=== PATIENT | male | born 1960 | race Caucasian/White ===

== ENCOUNTER 2017-10-15 21:34 | Inpatient (IN) | payer SELFPAY ==
[~2017-10-15] VITALS: Ht 180.3 cm; Wt 109.5 kg
[2017-10-15 21:34] VITALS: O2SAT 88
[2017-10-15] MEDS ORDERED: MANNITOL INJ 50 ML ONE (21:38)
[2017-10-15] MEDS ORDERED: MANNITOL INJ 100 ML ONE (21:38)
[2017-10-15 21:55] VITALS: O2SAT 90
[2017-10-15 22:04] LABS: AUTOMATED NEUTROPHIL # 10.9 TH/MM3 (1.8-7.7); BASOPHIL # 0.1 TH/MM3 (0-0.2); BASOPHIL % 0.5 % (0.0-2.0); EOSINOPHIL # 0.1 TH/MM3 (0-0.4); EOSINOPHIL % 0.8 % (0.0-4.0); HEMATOCRIT 35.3 % (39.0-51.0); LYMPHOCYTE # 2.7 TH/MM3 (1.0-4.8); MEAN CELL VOLUME 93.7 FL (80.0-100.0); MEAN CORPUSCULAR HEMOGLOBIN 30.6 PG (27.0-34.0); MEAN CORPUSCULAR HGB CONC 32.6 % (32.0-36.0); MONO % 2.8 % (0.0-8.0); NEUT % 76.9 % (16.0-70.0); PLATELET COUNT 193 TH/MM3 (150-450); RED BLOOD COUNT 3.77 MIL/MM3 (4.50-5.90); RED CELL DISTRIBUTION WIDTH 12.7 % (11.6-17.2); WHITE BLOOD COUNT 14.2 TH/MM3 (4.0-11.0)
[2017-10-15 22:06] LABS: I-STAT POTASSIUM 2.9 MMOL/L (3.5-4.9)
[2017-10-15] MEDS ORDERED: SODIUM CHLOR 0.9% 1000 ML INJ 1,000 ML IV SCH (22:06)
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
[2017-10-15] MEDS ORDERED: IOHEXOL 350 MG/ML 10 ML VIAL (for RAD DIAG) IVCONTRAST ONE (22:11)
[2017-10-15 22:15] VITALS: BP 95/50; PULSE 72; RESP 27; TEMP 92.7; O2SAT 75
[2017-10-15] MEDS ORDERED: PROPOFOL 1000 MG/100 ML INJ 100 ML IV PRN (22:15)
[2017-10-15] MEDS ORDERED: SODIUM CHLORIDE 0.9% FLUSH 10 ML FLUSH IV FLUSH PRN (22:15)
[2017-10-15] MEDS ORDERED: ONDANSETRON HCL 4 MG/2 ML VIAL IV PUSH PRN (22:15)
[2017-10-15] MEDS ORDERED: Post-op Orders (for Pharmacy) XX ONE (22:15)
[2017-10-15] MEDS ORDERED: NALOXONE HCL 0.4 MG/ML AMP IV PUSH PRN (22:15)
[2017-10-15 22:22] LABS: APTT (PATIENT) 23.4 SEC (24.3-30.1); INTERNATIONAL NORMALIZED RATIO 1.2 RATIO; PROTHROMBIN TIME - PATIENT 12.1 SEC (9.8-11.6)
[2017-10-15 22:23] LABS: HEMO FLAGS AUTO DIFF
[2017-10-15] MEDS ORDERED: NOREPINEPHRINE-DEXTROSE DRIP 250 ML IV ONE (22:24)
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
[2017-10-15] MEDS ORDERED: NOREPINEPHRINE 4 MG/4 ML AMP ONE (22:33)
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
[2017-10-15 22:35] VITALS: O2SAT 77
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
[2017-10-15] MEDS ORDERED: MANNITOL INJ 200 ML ONE (22:41)
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
[2017-10-15] MEDS ORDERED: POTASSIUM CHLOR 20 MEQ PREMIX 100 ML IV PRN ×2 (22:45)
[2017-10-15] MEDS ORDERED: POTASSIUM PHOSPHATE MONOBASIC 500 MG TAB PO PRN (22:45)
[2017-10-15] MEDS ORDERED: POTASSIUM PHOSPHATE INJ 30 MMOL in SODIUM CHLOR 0.9% 250 ML INJ 250 ML IV PRN (22:45)
[2017-10-15] MEDS ORDERED: POTASSIUM CHLOR 40 MEQ PREMIX 100 ML IV PRN ×2 (22:45)
[2017-10-15] MEDS ORDERED: POTASSIUM PHOSPHATE MONOBASIC 500 MG TAB PO/TUBE PRN (22:45)
[2017-10-15] MEDS ORDERED: MAGNESIUM SULFATE INJ 4 GM in SODIUM CHLORIDE 0.9% INJ 92 ML IV PRN (22:45)
[2017-10-15] MEDS ORDERED: POTASSIUM CHLORIDE 25 MEQ EFFERVESCENT TAB PO PRN (22:45)
[2017-10-15] MEDS ORDERED: SODIUM PHOSPHATE INJ 30 MMOL in SODIUM CHLOR 0.9% 250 ML INJ 240 ML IV PRN (22:45)
[2017-10-15] MEDS ORDERED: MAGNESIUM SULFATE INJ 2 GM in SODIUM CHLORIDE 0.9% INJ 96 ML IV PRN (22:45)
[2017-10-15] MEDS ORDERED: MAGNESIUM OXIDE 400 MG TAB PO PRN (22:45)
[2017-10-15 22:48] LABS: BLOOD GAS BASE EXCESS -12.7 mmol/L (-2-2); BLOOD GAS CARBOXYHEMOGLOBIN 0.6 % (0-4); BLOOD GAS HCO3 16 mmol/L (22-26); BLOOD GAS O2 HGB SATURATION 72 % (90-100); BLOOD GAS OXYGEN CONTENT 14.7 Vol % (12.0-20.0); BLOOD GAS PCO2 55 mmHg (38-42); BLOOD GAS PO2 52 mmHg (61-120); BLOOD GAS TOTAL HGB 14.5 G/DL (12.0-16.0); CRITICAL VALUE YES; DRAW SITE LT BRACHIAL; FIO2 100 %; NUMBER OF ARTERIAL PUNCTURES 1; OXYGEN DEVICE VENTILATOR; STAT YES; TEMP CORR TO 98.6; ULNAR PULSE PRESENT; VENT SETTINGS PRVC20/650/1.0/+10
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
[2017-10-15] MEDS ORDERED: PANTOPRAZOLE SODIUM 40 MG VIAL IV PUSH SCH (23:00)
[2017-10-15] MEDS ORDERED: SODIUM BICARBONATE 8.4% INJ 50 MEQ/50 ML SYR ONE ×2 (23:05→23:43)
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
[2017-10-15 23:24] LABS: BANDS 3 % (0-6); EOSINOPHILS 2 % (0-4); MYELOCYTES 1 % (0-0); NEUTROPHIL # MANUAL DIFF 11.2 TH/MM3 (1.8-7.7); POLYS (SEG NEUTROPHILS) 75 % (16-70); WBC DIFF SAMPLE 100
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
[2017-10-15 23:25] LABS: SCAN/DIFF FINAL DIFF MANUAL
[2017-10-15 23:27] LABS: PLATELET ESTIMATE SMEAR NORMAL (NORMAL); PLATELET MORPHOLOGY NORMAL (NORMAL)
[2017-10-15] MEDS ORDERED: PROPOFOL 1000 MG/100 ML IV PRN (23:30)
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
[2017-10-16] VITALS: PULSE 80
[2017-10-16] MEDS ORDERED: 3% SALINE INJ 500 ML IV ONE (00:15)
[2017-10-16] MEDS ORDERED: SODIUM CHLORIDE 23.4% INJ 240 MEQ in SYRINGE/BAG 1 EA IV ONE (00:15)
[2017-10-16 00:16] LABS: BLOOD GAS BASE EXCESS -4.6 mmol/L (-2-2); BLOOD GAS CARBOXYHEMOGLOBIN 0.5 % (0-4); BLOOD GAS HCO3 23 mmol/L (22-26); BLOOD GAS METHEMOGLOBIN 0.9 % (0-2); BLOOD GAS O2 HGB SATURATION 59 % (90-100); BLOOD GAS OXYGEN CONTENT 12.2 Vol % (12.0-20.0); BLOOD GAS PCO2 68 mmHg (38-42); BLOOD GAS PO2 40 mmHg (61-120); BLOOD GAS TOTAL HGB 14.8 G/DL (12.0-16.0); CRITICAL VALUE YES; FIO2 100 %; OXYGEN DEVICE VENTILATOR; TEMP CORR TO 98.6; VENT SETTINGS PRVC24/550/1.0/+12
[2017-10-16 00:17] LABS: DRAW SITE ALINE; STAT YES; ULNAR PULSE PRESENT
--- NOTE | 2017-10-16 00:17 | PD.PROCEDR ---
Procedure Note Procedure DX: Respiratory Failure (J96.01) OP: Insertion Right Radial Artery Line ([id number]) Procedure: Allent test normal right hand. Right wrist prepped and draped. Right radial artery cannulated with 20 gauge needle and wire easily advanced, Cannula passed over wire to 3 cm. Good waveform observed. Circulation intact after procedure. Jesus Silveira MD Oct 16, 2017 00:17
[2017-10-16] MEDS ORDERED: TERBUTALINE INJ 1 MG/ML AMP SQ PRN (00:30)
[2017-10-16] MEDS ORDERED: PHENYLEPHRINE INJ 160 MG in SODIUM CHLOR 0.9% 1000 ML INJ 1,000 ML IV PRN (00:30)
--- NOTE | 2017-10-16 00:33 | RADRPT ---
EXAM DATE/TIME: 10/16/2017 00:10 [facility] COMPARISON: CHEST SINGLE AP, October 15, 2017, 21:38. INDICATIONS : Hypoxemia. MEDICAL HISTORY : Non-responsive. SURGICAL HISTORY : Non-responsive. ENCOUNTER: Initial ACUITY: 1 day PAIN SCORE: Non-responsive. LOCATION: Bilateral chest FINDINGS: Single AP view of the chest. Endotracheal tube remains in place. Left subclavian central venous latonya ter is now seen with the tip in the distal SVC. Nasogastric tubes in place and courses below the fiel d-of-view of the radiograph. New prominent confluent pulmonary parenchymal opacities at the lung base s and perihilar regions. No evidence of pleural effusion or pneumothorax. Multiple posterior right-si ded rib fractures noted. CONCLUSION: 1. New prominent bilateral perihilar and lower lung zone pulmonary consolidation. May represent pulmo nary edema or aspiration. 2. Multiple right-sided rib fractures. David De La Torre MD on October 16, 2017 at 0:29 Board Certified Radiologist. This report was verified electronically.
[2017-10-16] MEDS ORDERED: PHENYLEPHRINE INJ 160 MG in SODIUM CHLORID 0.9% 500 ML INJ 484 ML IV PRN (00:45)
[2017-10-16 00:52] VITALS: BP 71/47
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
[2017-10-16 02:16] VITALS: PULSE 0
[2017-10-16] MEDS ORDERED: EPINEPHrine HCL (1:10,000) 1 MG/10 ML SYRINGE IV ONE (05:24)
[2017-10-16] MEDS ORDERED: CHLORHEXIDINE 0.12% (ORAL KIT) 15 ML CUP MT SCH (08:00)
[2017-10-16] MEDS ORDERED: SODIUM CHLORIDE 0.9% FLUSH 10 ML FLUSH IV FLUSH SCH (09:00)
[2017-10-16] MEDS ORDERED: levETIRAcetam INJ 500 MG in SODIUM CHLORIDE 0.9% INJ 100 ML IV SCH (09:00)
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
== END 2017-10-16 05:25 | disposition expired | DRG 963 ==
LOC: NEPI 21:34 → EDBD 22:08 → N03B 22:08
PROVIDERS: ADMIT Surgery; ATTEND Surgery
PROC: 30233N1 Transfusion of Nonautologous Red Blood Cells into Peripheral Vein, Percutaneous Approach (ICD-10-PCS; 2017-10-15)
PROC: 5A1935Z Respiratory Ventilation, Less than 24 Consecutive Hours (ICD-10-PCS; 2017-10-15)
PROC: 03HY32Z Insertion of Monitoring Device into Upper Artery, Percutaneous Approach (ICD-10-PCS; principal; 2017-10-16)
DX: S06.6X9A Traumatic subarachnoid hemorrhage with loss of consciousness of unspecified duration, initial encounter (principal); J69.0 Pneumonitis due to inhalation of food and vomit; S27.322A Contusion of lung, bilateral, initial encounter; J96.91 Respiratory failure, unspecified with hypoxia; E87.2 Acidosis; R40.2432 Glasgow coma scale score 3-8, at arrival to emergency department; S06.5X9A Traumatic subdural hemorrhage with loss of consciousness of unspecified duration, initial encounter; S61.512A Laceration without foreign body of left wrist, initial encounter; V29.9XXA Motorcycle rider (driver) (passenger) injured in unspecified traffic accident, initial encounter; Y92.410 Unspecified street and highway as the place of occurrence of the external cause
CPT/HCPCS: 36430; 36600; 70450; 70486; 71010; 71260; 72125; 72129; 72132; 74177; 80307; 82435; 82565; 82805; 82947; 84132; 84295; 84520; 85007; 85027; 85610; 85730; 86850; 86900; 86901; 86920; 92950; 94002; C9113; J0171; J0690; J2150; J2370; J7030; J7040; P9016; Q9967